=== PATIENT | female | born 1960 | race African-American/Black ===

== ENCOUNTER 2022-02-23 07:51 | Emergency (ER) | payer MEDICAID ==
[~2022-02-23] VITALS: Ht 180.3 cm; Wt 87.9 kg
[2022-02-23 08:00] VITALS: BP 126/79
[2022-02-23] MEDS ORDERED: CEPH-510 PO ×3 (10:49→15:07)
== END 2022-02-23 10:54 | disposition home or self-care (01) ==
LOC: ER 07:51
DX: S60.552A Superficial foreign body of left hand, initial encounter (principal); W22.8XXA Striking against or struck by other objects, initial encounter; Y93.89 Activity, other specified; Y92.89 Other specified places as the place of occurrence of the external cause; Y99.8 Other external cause status
CPT/HCPCS: 10120; 73120

== ENCOUNTER 2022-02-26 08:05 | Emergency (ER) | payer MEDICAID ==
[~2022-02-26] VITALS: Ht 180.3 cm; Wt 86.9 kg
[~2022-02-26 08:05] MED LIST: CEPH-510 PO
[2022-02-26 08:58] LABS: Basophils # (auto) 0 10 ^3/uL (0-0.2); Basophils % (auto) 0.4 % (0.0-2.0); Eosinophils # (auto) 0.1 10 ^3/uL (0-0.8); Eosinophils % (auto) 2.3 % (0.0-7.0); Hematocrit 35.6 % (36.0-46.0); Hemoglobin 12.4 g/dL (12.2-16.2); Mean Corpuscular Hemoglobin 32.9 pg (28.0-32.0); Mean Corpuscular Hgb Conc. 34.9 g/dL (32.0-36.0); Mean Corpuscular Volume 94.1 fL (80.0-100.0); Monocytes # (auto) 0.3 10 ^3/uL (0-1.3); Monocytes % (auto) 10.9 % (0.0-12.0); Neutrophils # (auto) 1.2 10 ^3/uL (1.6-8.6); Neutrophils % (auto) 46.4 % (37.0-80.0); Nucleated Red Blood Cells % 0.2 %; Red Blood Cells 3.78 10^6/uL (4.0-5.20); Red Cell Distribution Width 13.1 % (11.8-14.3); White Blood Cell 2.6 10^3/uL (4.4-10.8)
[2022-02-26] MEDS ORDERED: ACETAMINOPHEN 325 MG TAB PO ONE (09:00)
[2022-02-26 09:13] LABS: Albumin 3.5 g/dL (3.4-5.0); Potassium 3.8 mmol/L (3.5-5.1)
[2022-02-26 09:17] LABS: BUN/Creatinine Ratio 13.7; Bilirubin, Total 0.4 mg/dL (0.2-1.0); Total Protein 7.3 g/dL (6.4-8.2)
[2022-02-26 12:17] VITALS: BP 137/88
== END 2022-02-26 12:19 | disposition home or self-care (01) ==
LOC: ER 08:05
DX: S00.81XA Abrasion of other part of head, initial encounter (principal); R56.9 Unspecified convulsions; Z91.14 Patient's other noncompliance with medication regimen
CPT/HCPCS: 36415; 70450; 80053; 82962; 85025; 93005

== ENCOUNTER 2022-07-19 07:12 | Emergency (ER) | payer MEDICAID ==
[~2022-07-19] VITALS: Ht 180.3 cm; Wt 85.2 kg
[2022-07-19 07:50] VITALS: BP 102/63
[2022-07-19] MEDS ORDERED: NAP500T PO ×3 (08:10→08:21)
[2022-07-19] MEDS ORDERED: TRIA0.1O TOP ×3 (08:10→08:21)
== END 2022-07-19 08:22 | disposition home or self-care (01) ==
LOC: ER 07:12
DX: L84 Corns and callosities (principal); Z79.899 Other long term (current) drug therapy

== ENCOUNTER 2023-04-07 02:39 | Emergency (ER) | payer MEDICAID ==
[~2023-04-07] VITALS: Ht 172.7 cm; Wt 81.8 kg
[~2023-04-07 02:39] MED LIST changes: +NAP500T PO; +TRIA0.1O TOP
[2023-04-07 03:00] VITALS: BP 159/117; PULSE 95; RESP 18; O2SAT 98
[2023-04-07] MEDS ORDERED: LORazepam 0.5 MG TAB PO ONE (04:15)
== END 2023-04-09 09:40 | disposition left against medical advice (07) ==
LOC: ER 02:39 → EDBD 02:39 → ER 07:11
DX: R45.851 Suicidal ideations (principal); Z79.899 Other long term (current) drug therapy
CPT/HCPCS: 36415; 80320

== ENCOUNTER 2023-05-12 11:46 | Emergency (ER) | payer MEDICAID ==
[~2023-05-12] VITALS: Ht 177.8 cm; Wt 77.4 kg
[2023-05-12 11:57] VITALS: TEMP 97.1
[2023-05-12 12:05] VITALS: BP 153/93; PULSE 91; RESP 16; O2SAT 96
== END 2023-05-12 12:23 | disposition left against medical advice (07) ==
LOC: ER 11:46
DX: R51.9 Headache, unspecified (principal); Z53.21 Procedure and treatment not carried out due to patient leaving prior to being seen by health care provider

== ENCOUNTER 2023-11-24 19:28 | Emergency (ER) | payer MEDICAID ==
[~2023-11-24] VITALS: Ht 180.3 cm; Wt 80.4 kg
[2023-11-24 19:34] VITALS: BP 131/88; PULSE 111; RESP 20; O2SAT 98
== END 2023-11-24 23:00 | disposition left against medical advice (07) ==
LOC: ER 19:28
DX: R45.851 Suicidal ideations (principal); F15.90 Other stimulant use, unspecified, uncomplicated; Z87.891 Personal history of nicotine dependence
CPT/HCPCS: 36415; 80320